=== PATIENT | male | born 1955 | race Caucasian/White ===

== ENCOUNTER 2019-03-20 19:54 | Inpatient (IN) | payer MEDICARE ==
[~2019-03-20] VITALS: Ht 175.3 cm; Wt 95.8 kg
[2019-03-20] MEDS ORDERED: IV NORMAL SALINE 1000ML BAG 1,000 ML IV ONE ×3 (20:30→20:45)
[2019-03-20] MEDS ORDERED: ONDANSETRON PF 4 MG/2 ML VIAL. IV ONE (20:30)
[2019-03-20] MEDS ORDERED: ACETAMINOPHEN 500 MG TABLET PO ONE (20:30)
--- NOTE | 2019-03-20 20:41 | PHYS DOC ---
Past Medical History Past Medical History: Diabetes-Type II, High Cholesterol, Heart Disease, Hypertension, Immunosuppression, Renal Disease, Other Additional Past Medical Histor: RENAL TRANSPLANT; "BROKEN NECK" 8 WKS AGO Past Surgical History: Other Additional Past Surgical Histo: RENAL TRANSPLANT Alcohol Use: None Drug Use: None Adult General Chief Complaint Chief Complaint: NAUSEA/VOMITING/DIARRHA HPI HPI Patient is a 63 year old male patient with history of diabetes mellitus and kidney transplant in November 2012 who presents with complaining of fever and chills. Patient states he was driving from [facility] to this area and felt sudden onset of chills and sweating at 1600 and deep had 2 episodes of vomiting and 2 episodes of nonbloody diarrhea without abdominal pain, cough and congestion, neck pain, body ache, sick contact, urinary symptom. Patient states he had history of sepsis with Escherichia coli last December with the same symptoms. Review of Systems Review of Systems Constitutional: Reports fever and chills Eyes: Denies change in visual acuity, redness, or eye pain [] HENT: Denies nasal congestion or sore throat [] Respiratory: Denies cough or shortness of breath [] Cardiovascular: No additional information not addressed in HPI [] GI: Denies abdominal pain, reports nausea, vomiting, diarrhea [] : Denies dysuria or hematuria [] Musculoskeletal: Denies back pain or joint pain [] Integument: Denies rash or skin lesions [] Neurologic: Denies headache, focal weakness or sensory changes [] Endocrine: Denies polyuria or polydipsia [] All other systems were reviewed and found to be within normal limits, except as documented in this note. Current Medications Current Medications Current Medications Medications (Trade) Dose Ordered Sig/Geetha Start Time Stop Time Status Last Admin Dose Admin Acetaminophen (Tylenol) 1,000 mg 1X ONCE 03/20/19 20:30 03/20/19 20:33 DC 03/20/19 21:10 1,000 MG Ondansetron HCl (Zofran) 4 mg 1X ONCE 03/20/19 20:30 03/20/19 20:33 DC Piperacillin Sod/ Tazobactam Sod 2.25 gm/Sodium Chloride 50 ml @ 100 mls/hr 1X ONCE 03/20/19 21:45 03/20/19 22:14 DC 03/20/19 22:02 100 MLS/HR Sodium Chloride 1,000 ml @ 1,000 mls/hr 1X ONCE 03/20/19 20:45 03/20/19 21:44 DC 03/20/19 21:14 1,000 MLS/HR Allergies Allergies Allergies Coded Allergies Type Severity Reaction Last Updated Verified No Known Drug Allergies 03/20/19 No Physical Exam Physical Exam Constitutional: Well developed, well nourished, moderate distress, non-toxic appearance, temperature of 102.6. [] HENT: Normocephalic, atraumatic, bilateral external ears normal, oropharynx dry, no oral exudates, nose normal. [] Eyes: PERRLA, EOMI, conjunctiva normal, no discharge. [] Neck: Normal range of motion, no tenderness, supple, no stridor. [] Cardiovascular: Tachycardia, no murmur [] Lungs & Thorax: Bilateral breath sounds clear to auscultation [] Abdomen: Bowel sounds normal, soft, no tenderness, no masses, no pulsatile masses. [] Skin: Warm, dry, no erythema, no rash. [] Back: No tenderness, no CVA tenderness. [] Extremities: No tenderness, no cyanosis, no clubbing, ROM intact, no edema. [] Neurologic: Alert and oriented X 3, normal motor function, normal sensory function, no focal deficits noted. [] Psychologic: Affect normal, judgement normal, mood normal. [] Current Patient Data Vital Signs Vital Signs Date Time Temp Pulse Resp B/P (MAP) Pulse Ox O2 Delivery O2 Flow Rate FiO2 03/20/19 21:00 75 28 154/75 (101) 98 Room Air 03/20/19 20:24 102.9 102.9 Lab Values Laboratory Tests Test 03/20/19 21:00 03/20/19 21:10 White Blood Count 13.0 x10^3/uL (4.0-11.0) H Red Blood Count 4.58 x10^6/uL (4.30-5.70) Hemoglobin 13.3 g/dL (13.0-17.5) Hematocrit 40.0 % (39.0-53.0) Mean Corpuscular Volume 87 fL (79-100) Mean Corpuscular Hemoglobin 29 pg (25-35) Mean Corpuscular Hemoglobin Concent 33 g/dL (31-37) Red Cell Distribution Width 14.6 % (11.5-14.5) H Platelet Count 140 x10^3/uL (140-400) Neutrophils (%) (Auto) 86 % (31-73) H Lymphocytes (%) (Auto) 7 % (24-48) L Monocytes (%) (Auto) 7 % (0-9) Eosinophils (%) (Auto) 0 % (0-3) Basophils (%) (Auto) 0 % (0-3) Neutrophils # (Auto) 11.1 x10^3/uL (1.8-7.7) H Lymphocytes # (Auto) 0.9 x10^3/uL (1.0-4.8) L Monocytes # (Auto) 0.9 x10^3/uL (0.0-1.1) Eosinophils # (Auto) 0.0 x10^3/uL (0.0-0.7) Basophils # (Auto) 0.0 x10^3/uL (0.0-0.2) Segmented Neutrophils % 83 % (35-66) H Band Neutrophils % 4 % (0-9) Lymphocytes % 6 % (24-48) L Monocytes % 6 % (0-10) Metamyelocytes % 1 % (0-0) H Toxic Vacuolation Slight Platelet Estimate Adequate (ADEQUATE) Prothrombin Time 13.5 SEC (11.7-14.0) Prothrombin Time INR 1.1 (0.8-1.1) Sodium Level 138 mmol/L (136-145) Potassium Level 5.4 mmol/L (3.5-5.1) H Chloride Level 105 mmol/L (98-107) Carbon Dioxide Level 22 mmol/L (21-32) Anion Gap 11 (6-14) Blood Urea Nitrogen 51 mg/dL (8-26) H Creatinine 2.5 mg/dL (0.7-1.3) H Estimated GFR (Cockcroft-Gault) 26.0 BUN/Creatinine Ratio 20 (6-20) Glucose Level 174 mg/dL (70-99) H Lactic Acid Level 0.8 mmol/L (0.4-2.0) Calcium Level 8.8 mg/dL (8.5-10.1) Total Bilirubin 0.6 mg/dL (0.2-1.0) Aspartate Amino Transferase (AST) 30 U/L (15-37) Alanine Aminotransferase (ALT) 44 U/L (16-63) Alkaline Phosphatase 79 U/L (46-116) Total Protein 7.7 g/dL (6.4-8.2) Albumin 4.0 g/dL (3.4-5.0) Albumin/Globulin Ratio 1.1 (1.0-1.7) Lipase 211 U/L (73-393) Influenza Type A Antigen Negative (NEGATIVE) Influenza Type B Antigen Negative (NEGATIVE) Laboratory Tests 03/20/19 21:00 Laboratory Tests 03/20/19 21:00 EKG EKG [] Radiology/Procedures Radiology/Procedures [][facility] [address] [place] [address] IMAGING REPORT Signed PATIENT: ANTONIA HANLEY ACCOUNT: [id number] : 1955 LOCATION: [address] [place] [address] AGE: 63 SEX: M EXAM STATUS: ADM IN ORD. PHYSICIAN: RUBIA VELEZ MD REASON: vomiting and diarrhea, fever PROCEDURE: PORTABLE CHEST 1V Indication:Fever. Diarrhea. TECHNIQUE:Portable AP chest X-ray COMPARISON: None FINDINGS: Patient is rotated to the right side limiting optimal evaluation. Heart is normal in size. Mild central bilateral peribronchial wall thickening is seen with interstitial opacities. No focal consolidation. No pneumothorax or pleural effusion. Visualized bony thorax within normal limits. IMPRESSION: Findings of acute bronchitis/atypical/viral infection. Electronically signed by: Vega Lacey DO (03/21/2019 12:07 AM) [facility] DICTATED and SIGNED BY: VEGA LACEY DO DATE: 03/21/19 0007 Course & Med Decision Making Course & Med Decision Making Pertinent Labs and Imaging studies reviewed. (See chart for details) Evaluation of patient in ER showed 63-year-old male patient with history of diabetes mellitus and renal transplant on Prograf and prednisone complaining of sudden onset of fever and few episode of nausea and vomiting and diarrhea. Patient had temperature of 102 at arrival to ER that gradually improved. Lactic was negative. On-call infectious disease and Dr. Gan was consulted at 2144 and recommended to start renal dose of Zosyn. Patient tolerated oral intake.Patient requiring admission for further evaluation and treatment. Discussed with Dr. Saavedra who is in agreement with admission. Discussed findings and plan with patient and family, who acknowledge understanding and agreement. Dragon Disclaimer Dragon Disclaimer This electronic medical record was generated, in whole or in part, using a voice recognition dictation system. Departure Departure Impression: Primary Impression: Fever Additional Impressions: Acute gastroenteritis Chronic renal insufficiency History of renal transplantation Chills Disposition: ADMITTED INPATIENT (at 2130) Admitting Physician: TAWANA (Dr. Saavedra accepted admission at 2129) Condition: GUARDED Critical Care Time Critical care time was 60 minutes exclusive of procedures. Problem Qualifiers Primary Impression: Fever Fever type: unspecified Qualified Codes: R50.9 - Fever, unspecified Additional Impressions: Chronic renal insufficiency Chronic kidney disease stage: unspecified stage Qualified Codes: N18.9 - Chronic kidney disease, unspecified RUBIA VELEZ MD Mar 20, 2019 20:41
[2019-03-20 21:12] LABS: BASO % 0 % (0-3); EOS % 0 % (0-3); HEMOGLOBIN 13.3 g/dL (13.0-17.5); LYMPH # 0.9 x10^3/uL (1.0-4.8); LYMPH % 7 % (24-48); MEAN CORPUSCULAR HEMOGLOBIN 29 pg (25-35); MEAN CORPUSCULAR HGB CONC 33 g/dL (31-37); MEAN CORPUSCULAR VOLUME 87 fL (79-100); MONO # 0.9 x10^3/uL (0.0-1.1); MONO % 7 % (0-9); NEUT # 11.1 x10^3/uL (1.8-7.7); NEUT % 86 % (31-73); PLATELET COUNT 140 x10^3/uL (140-400); RED BLOOD COUNT 4.58 x10^6/uL (4.30-5.70); RED CELL DISTRIBUTION WIDTH 14.6 % (11.5-14.5)
[2019-03-20 21:21] LABS: PROTHROMBIN TIME PATIENT 13.5 SEC (11.7-14.0)
[2019-03-20 21:25] LABS: CALCIUM 8.8 mg/dL (8.5-10.1); CREATININE 2.5 mg/dL (0.7-1.3); POTASSIUM 5.4 mmol/L (3.5-5.1)
[2019-03-20 21:29] LABS: ALBUMIN/GLOBULIN RATIO 1.1 (1.0-1.7); TOTAL BILIRUBIN 0.6 mg/dL (0.2-1.0); TOTAL PROTEIN 7.7 g/dL (6.4-8.2)
[2019-03-20 21:31] LABS: % BANDS 4 % (0-9); % LYMPHS 6 % (24-48); % METAS 1 % (0-0); % MONOS 6 % (0-10); % SEGS 83 % (35-66); PLT ESTIMATE ADEQUATE (ADEQUATE)
[2019-03-20 21:32] LABS: TOXIC VACUOLATION SLIGHT
[2019-03-20 21:35] LABS: INFLUENZA A PATIENT NEGATIVE (NEGATIVE); INFLUENZA B PATIENT NEGATIVE (NEGATIVE)
[2019-03-20] MEDS ORDERED: PIPERACILLIN/TAZOBACTAM 2.25 GM in IV NORMAL SALINE 50ML 50 ML IV ONE (21:45)
[2019-03-20] MEDS ORDERED: ACETAMINOPHEN 325 MG TABLET. PO PRN (22:15)
[2019-03-20] MEDS ORDERED: ALBUTEROL SULFATE 2.5 MG/3 ML NEBU. CONT NEB ONE (22:15)
[2019-03-20] MEDS ORDERED: ONDANSETRON PF 4 MG/2 ML VIAL. IV PRN (22:15)
[2019-03-20] MEDS ORDERED: TAMS0.4C97 PO (22:49)
[2019-03-20] MEDS ORDERED: INSU100V6 SQ (22:49)
[2019-03-20] MEDS ORDERED: AMLO10TA4 PO (22:49)
[2019-03-20] MEDS ORDERED: INSU100I13 SQ (22:49)
[2019-03-20] MEDS ORDERED: TACR1CAP4 PO (22:49)
[2019-03-20] MEDS ORDERED: MYCO360T PO (22:49)
[2019-03-20] MEDS ORDERED: CHOL2000 PO (22:49)
[2019-03-20] MEDS ORDERED: ASPI-630 PO (22:49)
[2019-03-20] MEDS ORDERED: PRED2.5T PO (22:49)
[2019-03-20] MEDS ORDERED: MULT1TAB52 PO (22:49)
[2019-03-20] MEDS ORDERED: CHLO25TA10 PO (22:49)
[2019-03-20] MEDS ORDERED: ATOR10TA60 PO (22:49)
[2019-03-20] MEDS ORDERED: LISI-130 PO (22:49)
[2019-03-20 23:09] VITALS: BP 131/45
[2019-03-20] MEDS: IV NORMAL SALINE 1000ML BAG 1,000 ML IV SCH (23:45)
[2019-03-20] MEDS: PIPERACILLIN/TAZOBACTAM 2.25 GM in IV NORMAL SALINE 50ML 50 ML IV SCH (23:52)
--- NOTE | 2019-03-20 23:55 | NUR ---
Pt arrived to room 208 per cart ,pt oriented to surroundings vs obtained and stable pt denies pain at this time. Assessment completed call light placed in reach playground monitor applied will monitor pt.
[2019-03-21] MEDS ORDERED: TACROLIMUS 0.5 MG CAPSULE PO ONE
[2019-03-21] MEDS ORDERED: MYCOPHENOLATE ACID 180 MG TABLET.DR. PO ONE
[2019-03-21] MEDS ORDERED: TACROLIMUS 1 MG CAPSULE PO ONE
[2019-03-21] MEDS ORDERED: LISINOPRIL 20 MG TABLET PO ONE
--- NOTE | 2019-03-21 00:09 | RAD ---
Indication:Fever. Diarrhea. TECHNIQUE:Portable AP chest X-ray COMPARISON: None FINDINGS: Patient is rotated to the right side limiting optimal evaluation. Heart is normal in size. Mild central bilateral peribronchial wall thickening is seen with interstitial opacities. No focal consolidation. No pneumothorax or pleural effusion. Visualized bony thorax within normal limits. IMPRESSION: Findings of acute bronchitis/atypical/viral infection. Electronically signed by: Vega Lacey DO (03/21/2019 12:07 AM) [facility]
[2019-03-21] MEDS: PIPERACILLIN/TAZOBACTAM 2.25 GM in IV NORMAL SALINE 50ML 50 ML IV SCH ×4 (06:09→23:18)
[2019-03-21] MEDS: IV NORMAL SALINE 1000ML BAG 1,000 ML IV SCH ×2 (06:15→14:51)
[2019-03-21 07:00] VITALS: BP 131/54
[2019-03-21] MEDS ORDERED: PIP/TAZO PER PHARMACY MC PRN (07:00)
[2019-03-21 07:33] LABS: BILIRUBIN,URINE NEGATIVE (NEG); CLARITY,URINE CLEAR; COLOR,URINE YELLOW; NITRITE,URINE POSITIVE (NEG); PH,URINE 5.5; PROTEIN,URINE NEGATIVE (NEG-TRACE); UROBILINOGEN,URINE 0.2 mg/dL (0.2 mg/dL)
[2019-03-21 07:46] LABS: BACTERIA,URINE MANY /HPF (0-FEW); SQUAMOUS EPITHELIAL CELL,UR OCC /LPF
[2019-03-21 07:47] LABS: RBC,URINE OCC /HPF (0-2); WBC,URINE >40 /HPF (0-4)
[2019-03-21] MEDS: MYCOPHENOLATE ACID 180 MG TABLET.DR. PO SCH ×2 (08:53→23:08)
[2019-03-21] MEDS: TACROLIMUS 0.5 MG CAPSULE PO SCH ×2 (08:54→23:08)
[2019-03-21] MEDS: amLODIPine BESYLATE 10 MG TABLET PO SCH (08:54)
[2019-03-21] MEDS: CHOLECALCIFEROL (VITAMIN D3) 1,000 UNIT TABLET PO SCH (08:54)
[2019-03-21] MEDS: MULTIVITAMIN with MINERAL TABLET. PO SCH (08:55)
[2019-03-21] MEDS: LISINOPRIL 20 MG TABLET PO SCH ×2 (08:55→23:06)
[2019-03-21] MEDS: TAMSULOSIN 0.4 MG CAP.ER.24H. PO SCH (08:55)
[2019-03-21] MEDS: CHLORTHALIDONE 25 MG TABLET. PO SCH (08:55)
[2019-03-21] MEDS: predniSONE 5 MG TABLET PO SCH (08:55)
[2019-03-21] MEDS: ASPIRIN CHEWABLE 81 MG TABLET. PO SCH (08:55)
[2019-03-21] MEDS: INSULIN LISPRO 300 UNITS/3 ML VIAL. SQ SCH ×4 (08:56→21:00)
[2019-03-21] MEDS ORDERED: NON FORMULARY ITEM (Insulin Glargine,Hum.rec.anlog (Lantus Solostar) 60 UNIT) SQ SCH (09:00)
[2019-03-21] MEDS ORDERED: INSULIN GLARGINE SYRINGE. SQ SCH (09:00)
--- NOTE | 2019-03-21 09:29 | PDOC ---
Infectious Disease Note Vital Signs: Vital Signs Vital Signs Date Time Temp Pulse Resp B/P (MAP) Pulse Ox O2 Delivery O2 Flow Rate FiO2 03/21/19 08:55 73 131/54 03/21/19 07:00 99.2 18 99 Room Air 99.2 Medications: Inpatient Meds: Current Medications Medications (Trade) Dose Ordered Sig/Geetha Start Time Stop Time Status Last Admin Dose Admin Acetaminophen (Tylenol) 650 mg PRN Q4HRS PRN 03/20/19 22:15 03/21/19 08:00 DC Albuterol Sulfate (Ventolin Neb Soln) 10 mg 1X ONCE 03/20/19 22:15 03/20/19 22:16 DC 03/20/19 23:40 10 MG Amlodipine Besylate (Norvasc) 20 mg DAILY 03/21/19 09:00 03/21/19 08:54 20 MG Aspirin (Children'S Aspirin) 81 mg DAILYWBKFT 03/21/19 08:00 03/21/19 08:55 81 MG Atorvastatin Calcium (Lipitor) 10 mg HS 03/21/19 21:00 Chlorthalidone (Thalitone) 25 mg DAILY 03/21/19 09:00 03/21/19 08:55 25 MG Insulin Glargine (Lantus Syringe) 60 unit DAILY 03/21/19 09:00 03/21/19 09:10 30 UNIT Insulin Human Lispro (HumaLOG) 6 units QIDACHS 03/21/19 07:30 03/21/19 08:56 6 UNITS Lisinopril (Prinivil) 40 mg 1X ONCE 03/21/19 00:00 03/21/19 00:01 DC 03/21/19 00:00 40 MG Multivitamins (Thera M Plus) 1 tab DAILY 03/21/19 09:00 03/21/19 08:55 1 TAB Mycophenolate Sodium (Myfortic) 720 mg 1X ONCE 03/21/19 00:00 03/21/19 00:01 DC 03/21/19 00:01 720 MG Non-Formulary Medication (Insulin Glargine,Hum.rec.anlog (Lantus Solostar)) 60 unit DAILY 03/21/19 09:00 UNV Ondansetron HCl (Zofran) 4 mg PRN Q4HRS PRN 03/20/19 22:15 Piperacillin Sod/ Tazobactam Sod (Zosyn Per Pharmacy) 1 each PRN DAILY PRN 03/21/19 07:00 Piperacillin Sod/ Tazobactam Sod 2.25 gm/Sodium Chloride 50 ml @ 100 mls/hr Q6HRS 03/21/19 12:00 Prednisone (Prednisone) 5 mg DAILY 03/21/19 09:00 03/21/19 08:55 5 MG Sodium Chloride 1,000 ml @ 125 mls/hr Q8H 03/20/19 22:15 03/21/19 22:14 03/20/19 23:45 125 MLS/HR Tacrolimus (Prograf) 2 mg 1X ONCE 03/21/19 00:00 03/21/19 00:01 DC 03/21/19 00:02 2 MG Tamsulosin HCl (Flomax) 0.4 mg DAILY 03/21/19 09:00 03/21/19 08:55 0.4 MG Vitamin D (Vitamin D3) 2,000 unit DAILY 03/21/19 09:00 03/21/19 08:54 2,000 UNIT Labs: Lab Laboratory Tests Test 03/20/19 21:00 03/20/19 21:10 03/20/19 22:47 03/21/19 07:10 White Blood Count 13.0 x10^3/uL (4.0-11.0) Red Blood Count 4.58 x10^6/uL (4.30-5.70) Hemoglobin 13.3 g/dL (13.0-17.5) Hematocrit 40.0 % (39.0-53.0) Mean Corpuscular Volume 87 fL (79-100) Mean Corpuscular Hemoglobin 29 pg (25-35) Mean Corpuscular Hemoglobin Concent 33 g/dL (31-37) Red Cell Distribution Width 14.6 % (11.5-14.5) Platelet Count 140 x10^3/uL (140-400) Neutrophils (%) (Auto) 86 % (31-73) Lymphocytes (%) (Auto) 7 % (24-48) Monocytes (%) (Auto) 7 % (0-9) Eosinophils (%) (Auto) 0 % (0-3) Basophils (%) (Auto) 0 % (0-3) Neutrophils # (Auto) 11.1 x10^3/uL (1.8-7.7) Lymphocytes # (Auto) 0.9 x10^3/uL (1.0-4.8) Monocytes # (Auto) 0.9 x10^3/uL (0.0-1.1) Eosinophils # (Auto) 0.0 x10^3/uL (0.0-0.7) Basophils # (Auto) 0.0 x10^3/uL (0.0-0.2) Segmented Neutrophils % 83 % (35-66) Band Neutrophils % 4 % (0-9) Lymphocytes % 6 % (24-48) Monocytes % 6 % (0-10) Metamyelocytes % 1 % (0-0) Toxic Vacuolation Slight Platelet Estimate Adequate (ADEQUATE) Prothrombin Time 13.5 SEC (11.7-14.0) Prothromb Time International Ratio 1.1 (0.8-1.1) Sodium Level 138 mmol/L (136-145) Potassium Level 5.4 mmol/L (3.5-5.1) Chloride Level 105 mmol/L (98-107) Carbon Dioxide Level 22 mmol/L (21-32) Anion Gap 11 (6-14) Blood Urea Nitrogen 51 mg/dL (8-26) Creatinine 2.5 mg/dL (0.7-1.3) Estimated GFR (Cockcroft-Gault) 26.0 BUN/Creatinine Ratio 20 (6-20) Glucose Level 174 mg/dL (70-99) Lactic Acid Level 0.8 mmol/L (0.4-2.0) Calcium Level 8.8 mg/dL (8.5-10.1) Total Bilirubin 0.6 mg/dL (0.2-1.0) Aspartate Amino Transf (AST/SGOT) 30 U/L (15-37) Alanine Aminotransferase (ALT/SGPT) 44 U/L (16-63) Alkaline Phosphatase 79 U/L (46-116) Total Protein 7.7 g/dL (6.4-8.2) Albumin 4.0 g/dL (3.4-5.0) Albumin/Globulin Ratio 1.1 (1.0-1.7) Lipase 211 U/L (73-393) Influenza Type A Antigen Negative (NEGATIVE) Influenza Type B Antigen Negative (NEGATIVE) Glucose (Fingerstick) 136 mg/dL (70-99) Urine Collection Type U cath Urine Color Yellow Urine Clarity Clear Urine pH 5.5 Urine Specific Mcgill 1.015 Urine Protein Negative mg/dL (NEG-TRACE) Urine Glucose (UA) Negative mg/dL (NEG) Urine Ketones (Stick) Negative mg/dL (NEG) Urine Blood Negative (NEG) Urine Nitrite Positive (NEG) Urine Bilirubin Negative (NEG) Urine Urobilinogen Dipstick 0.2 mg/dL (0.2 mg/dL) Urine Leukocyte Esterase Moderate (NEG) Urine RBC Occ /HPF (0-2) Urine WBC >40 /HPF (0-4) Urine Squamous Epithelial Cells Occ /LPF Urine Bacteria Many /HPF (0-FEW) Urine Mucus Slight /LPF Test 03/21/19 08:17 Glucose (Fingerstick) 208 mg/dL (70-99) Objective: Assessment: Pt seen and examined ID consult dictated [id number] Plan: Plan of Care cont kem thank you LYNDSAY HOWE MD Mar 21, 2019 09:29
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
[2019-03-21 11:00] VITALS: BP 114/56
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
--- NOTE | 2019-03-21 12:19 | PDOC1 ---
History and Physical Date of Admission Date of Admission DATE: 03/21/19 TIME: 12:15 History of Present Illness History of Present Illness GeraldrAris Fitzgerald, is a 63 year old male patient admit with weakness sweats, fever, myalgia, started suddenly last evening. Patient states he [facility] [place] this area and felt sudden onset of chills and sweating at 1600 and deep had 2 episodes of vomiting and 2 episodes of nonbloody diarrhea without abdominal pain, cough and congestion, neck pain, body ache, sick contact, urinary symptom he was chilled, shivering, but sweating profusely, he thinks his temp was > 102 because he felt worse in the car before he got here. he is in town for the [place], with his , she went to the race this AM Past Medical History Past Medical History with history of diabetes mellitus and kidney transplant in November 2012 prior e. coli bacteremia this year Family History Family History: No Significant Social History Smoke: No ALCOHOL: rare Current Problem List Problem List Problems Medical Problems: (1) Acute gastroenteritis Status: Acute (2) Chills Status: Acute (3) Chronic renal insufficiency Status: Acute (4) Fever Status: Acute Current Medications Current Medications Current Medications Acetaminophen (Tylenol) 1,000 mg 1X ONCE PO Last administered on 03/20/19at 21:10; Start 03/20/19 at 20:30; Stop 03/20/19 at 20:33; Status DC Ondansetron HCl (Zofran) 4 mg 1X ONCE IV ; Start 03/20/19 at 20:30; Stop 03/20/19 at 20:33; Status DC Sodium Chloride 1,000 ml @ 1,000 mls/hr 1X ONCE IV Last administered on 03/20/19at 21:09; Start 03/20/19 at 20:30; Stop 03/20/19 at 21:29; Status DC Sodium Chloride 1,000 ml @ 1,000 mls/hr 1X ONCE IV Last administered on 03/20/19at 21:15; Start 03/20/19 at 20:30; Stop 03/20/19 at 21:29; Status DC Sodium Chloride 1,000 ml @ 1,000 mls/hr 1X ONCE IV Last administered on 03/20/19at 21:14; Start 03/20/19 at 20:45; Stop 03/20/19 at 21:44; Status DC Piperacillin Sod/ Tazobactam Sod 2.25 gm/Sodium Chloride 50 ml @ 100 mls/hr 1X ONCE IV Last administered on 03/20/19at 22:02; Start 03/20/19 at 21:45; Stop 03/20/19 at 22:14; Status DC Albuterol Sulfate (Ventolin Neb Soln) 10 mg 1X ONCE CONT NEB Last administered on 03/20/19at 23:40; Start 03/20/19 at 22:15; Stop 03/20/19 at 22:16; Status DC Ondansetron HCl (Zofran) 4 mg PRN Q4HRS PRN IV NAUSEA/VOMITING; Start 03/20/19 at 22:15 Sodium Chloride 1,000 ml @ 125 mls/hr Q8H IV Last administered on 03/20/19at 23:45; Start 03/20/19 at 22:15; Stop 03/21/19 at 22:14 Acetaminophen (Tylenol) 650 mg PRN Q4HRS PRN PO FEVER; Start 03/20/19 at 22:15; Stop 03/21/19 at 08:00; Status DC Piperacillin Sod/ Tazobactam Sod 2.25 gm/Sodium Chloride 50 ml @ 100 mls/hr Q6HRS IV Last administered on 03/21/19at 06:09; Start 03/21/19 at 00:00; Stop 03/21/19 at 06:29; Status DC Amlodipine Besylate (Norvasc) 20 mg DAILY PO Last administered on 03/21/19at 08:54; Start 03/21/19 at 09:00 Aspirin (Children'S Aspirin) 81 mg DAILYWBKFT PO Last administered on 03/21/19at 08:55; Start 03/21/19 at 08:00 Atorvastatin Calcium (Lipitor) 10 mg HS PO ; Start 03/21/19 at 21:00 Chlorthalidone (Thalitone) 25 mg DAILY PO Last administered on 03/21/19at 08:55; Start 03/21/19 at 09:00 Insulin Human Lispro (HumaLOG) 6 units QIDACHS SQ Last administered on 03/21/19at 08:56; Start 03/21/19 at 07:30 Lisinopril (Prinivil) 40 mg BID PO Last administered on 03/21/19 08:55; Start 03/21/19 at 09:00 Tacrolimus (Prograf) 2 mg BID PO Last administered on 03/21/19 08:54; Start 03/21/19 at 09:00 Tamsulosin HCl (Flomax) 0.4 mg DAILY PO Last administered on 03/21/19 08:55; Start 03/21/19 at 09:00 Vitamin D (Vitamin D3) 2,000 unit DAILY PO Last administered on 03/21/19 08:54; Start 03/21/19 at 09:00 Non-Formulary Medication (Insulin Glargine,Hum.rec.anlog (Lantus Solostar)) 60 unit DAILY SQ ; Start 03/21/19 at 09:00; Status UNV Multivitamins (Thera M Plus) 1 tab DAILY PO Last administered on 03/21/19 08:55; Start 03/21/19 at 09:00 Mycophenolate Sodium (Myfortic) 720 mg BID PO Last administered on 03/21/19at 08:53; Start 03/21/19 at 09:00 Prednisone (Prednisone) 5 mg DAILY PO Last administered on 03/21/19 08:55; Start 03/21/19 at 09:00 Insulin Glargine (Lantus Syringe) 60 unit DAILY SQ Last administered on 03/21/19at 09:10; Start 03/21/19 at 09:00 Mycophenolate Sodium (Myfortic) 720 mg 1X ONCE PO Last administered on 03/21/19at 00:01; Start 03/21/19 at 00:00; Stop 03/21/19 at 00:01; Status DC Tacrolimus (Prograf) 2 mg 1X ONCE PO ; Start 03/21/19 at 00:00; Stop 03/20/19 at 23:54; Status DC Lisinopril (Prinivil) 40 mg 1X ONCE PO Last administered on 03/21/19at 00:00; Start 03/21/19 at 00:00; Stop 03/21/19 at 00:01; Status DC Tacrolimus (Prograf) 2 mg 1X ONCE PO Last administered on 03/21/19at 00:02; Start 03/21/19 at 00:00; Stop 03/21/19 at 00:01; Status DC Piperacillin Sod/ Tazobactam Sod (Zosyn Per Pharmacy) 1 each PRN DAILY PRN MC SEE COMMENTS; Start 03/21/19 at 07:00 Piperacillin Sod/ Tazobactam Sod 2.25 gm/Sodium Chloride 50 ml @ 100 mls/hr Q6HRS IV ; Start 03/21/19 at 12:00 Active Scripts Active Reported Lantus Solostar (Insulin Glargine,Hum.rec.anlog) 100 Unit/1 Ml Insuln.pen 60 Unit SQ DAILY Humalog (Insulin Lispro) 100 Unit/1 Ml Vial 6 Unit SQ QIDACHS Vitamin D (Cholecalciferol (Vitamin D3)) 2,000 Unit Capsule 1 Cap PO DAILY Aspirin 81 Mg Tab.chew 1 Tab PO DAILY Multivitamins (Multivitamin) 1 Each Tablet 1 Tab PO DAILY Chlorthalidone (Chlorthalidone) 25 Mg Tablet 25 Mg PO DAILY Atorvastatin Calcium 10 Mg Tablet 1 Tab PO DAILY Norvasc (Amlodipine Besylate) 10 Mg Tablet 20 Mg PO DAILY Flomax (Tamsulosin Hcl) 0.4 Mg Cap.er.24h 0.4 Mg PO DAILY Lisinopril 40 Mg Tablet 40 Mg PO BID Prednisone 2.5 Mg Tablet 5 Mg PO DAILY Prograf (Tacrolimus) 1 Mg Capsule 2 Mg PO BID Myfortic (Mycophenolate Sodium) 360 Mg Tablet.dr 720 Mg PO BID Allergies Allergies: Coded Allergies: No Known Drug Allergies (Unverified , 03/20/19) ROS General: YES: Chills, Fatigue, Malaise; No: Night Sweats, Appetite, Other PSYCHOLOGICAL ROS: No: Anxiety, Behavioral Disorder, Concentration difficultie, Decreased libido, Depression, Disorientation, Hallucinations, Hostility, Irritab lity, Memory difficulties, Mood Swings, Obsessive thoughts, Other Eyes: No Blurry vision, No Decreased vision, No Double vision, No Dry eyes, No Excessive tearing, No Eye Pain, No Itchy Eyes, No Loss of vision, No Photophobia, No Scotomata, No Uses contacts, No Uses glasses, No Other HEENT: No: Heacaches, Visual Changes, Hearing change, Nasal congestion, Nasal discharge, Oral lesions, Sinus pain, Sore Throat, Epistaxis, Sneezing, Snoring, Tinnitus, Vertigo, Vocal changes, Other Respiratory: YES: SOB with excertion; No: Cough, Hemoptysis, Orthopnea, Pleuritic Pain, Shortness of breath, Sputum Changes, Stridor, Tachypnea, Wheezing, Other Cardiovascular: No Chest Pain, No Palpitations, No Orthopnea, No Paroxysmal Noc. Dyspnea, No Edema, No Lt Headedness, No Other Gastrointestinal: Yes Nausea; No Vomiting, No Abdominal Pain, No Diarrhea, No Constipation, No Melena, No Hematochezia, No Other Genitourinary: No Dysuria, No Frequency, No Incontinence, No Hematuria, No Retention, No Discharge, No Urgency, No Pain, No Flank Pain, No Other, No , No , No , No , No , No , No Musculoskeletal: Yes Muscular Weakness; No Gait Disturbance, No Joint Pain, No Joint Stiffness, No Joint Swelling, No Muscle Pain, No Pain In:, No Swelling In:, No Other Neurological: No Behavorial Changes, No Bowel/Bladder ControlChng, No Confusion, No Dizziness, No Gait Disturbance, No Headaches, No Impaired Coord/balance, No Memory Loss, No Numbness/Tingling, No Seizures, No Speech Problems, No Tremors, No Visual Changes, No Weakness, No Other Skin: Yes Dry Skin; No Eczema, No Hair Changes, No Lumps, No Mole Changes, No Mottling, No Nail Changes, No Pruritus, No Rash, No Skin Lesion Changes, No Other, No Acne Physical Exam General: Alert, Oriented X3, Cooperative, mild distress HEENT: Atraumatic, PERRLA, EOMI, Mucous membr. moist/pink Lungs: Normal air movement Heart: no gallops, no murmurs Abdomen: Normal bowel sounds, Soft Extremities: No clubbing, No edema Skin: No rashes, No significant lesion Neuro: Normal gait, Normal tone Psych/Mental Status: Mental status NL, Mood NL Vitals Vitals Vital Signs Date Time Temp Pulse Resp B/P (MAP) Pulse Ox O2 Delivery O2 Flow Rate FiO2 03/21/19 08:55 73 131/54 03/21/19 07:00 99.2 18 99 Room Air 99.2 Labs Labs Laboratory Tests Test 03/20/19 21:00 03/20/19 21:10 03/20/19 22:47 03/21/19 07:10 White Blood Count 13.0 x10^3/uL (4.0-11.0) Red Blood Count 4.58 x10^6/uL (4.30-5.70) Hemoglobin 13.3 g/dL (13.0-17.5) Hematocrit 40.0 % (39.0-53.0) Mean Corpuscular Volume 87 fL (79-100) Mean Corpuscular Hemoglobin 29 pg (25-35) Mean Corpuscular Hemoglobin Concent 33 g/dL (31-37) Red Cell Distribution Width 14.6 % (11.5-14.5) Platelet Count 140 x10^3/uL (140-400) Neutrophils (%) (Auto) 86 % (31-73) Lymphocytes (%) (Auto) 7 % (24-48) Monocytes (%) (Auto) 7 % (0-9) Eosinophils (%) (Auto) 0 % (0-3) Basophils (%) (Auto) 0 % (0-3) Neutrophils # (Auto) 11.1 x10^3/uL (1.8-7.7) Lymphocytes # (Auto) 0.9 x10^3/uL (1.0-4.8) Monocytes # (Auto) 0.9 x10^3/uL (0.0-1.1) Eosinophils # (Auto) 0.0 x10^3/uL (0.0-0.7) Basophils # (Auto) 0.0 x10^3/uL (0.0-0.2) Segmented Neutrophils % 83 % (35-66) Band Neutrophils % 4 % (0-9) Lymphocytes % 6 % (24-48) Monocytes % 6 % (0-10) Metamyelocytes % 1 % (0-0) Toxic Vacuolation Slight Platelet Estimate Adequate (ADEQUATE) Prothrombin Time 13.5 SEC (11.7-14.0) Prothromb Time International Ratio 1.1 (0.8-1.1) Sodium Level 138 mmol/L (136-145) Potassium Level 5.4 mmol/L (3.5-5.1) Chloride Level 105 mmol/L (98-107) Carbon Dioxide Level 22 mmol/L (21-32) Anion Gap 11 (6-14) Blood Urea Nitrogen 51 mg/dL (8-26) Creatinine 2.5 mg/dL (0.7-1.3) Estimated GFR (Cockcroft-Gault) 26.0 BUN/Creatinine Ratio 20 (6-20) Glucose Level 174 mg/dL (70-99) Lactic Acid Level 0.8 mmol/L (0.4-2.0) Calcium Level 8.8 mg/dL (8.5-10.1) Total Bilirubin 0.6 mg/dL (0.2-1.0) Aspartate Amino Transf (AST/SGOT) 30 U/L (15-37) Alanine Aminotransferase (ALT/SGPT) 44 U/L (16-63) Alkaline Phosphatase 79 U/L (46-116) Total Protein 7.7 g/dL (6.4-8.2) Albumin 4.0 g/dL (3.4-5.0) Albumin/Globulin Ratio 1.1 (1.0-1.7) Lipase 211 U/L (73-393) Influenza Type A Antigen Negative (NEGATIVE) Influenza Type B Antigen Negative (NEGATIVE) Glucose (Fingerstick) 136 mg/dL (70-99) Urine Collection Type U cath Urine Color Yellow Urine Clarity Clear Urine pH 5.5 Urine Specific [place] 1.015 Urine Protein Negative mg/dL (NEG-TRACE) Urine Glucose (UA) Negative mg/dL (NEG) Urine Ketones (Stick) Negative mg/dL (NEG) Urine Blood Negative (NEG) Urine Nitrite Positive (NEG) Urine Bilirubin Negative (NEG) Urine Urobilinogen Dipstick 0.2 mg/dL (0.2 mg/dL) Urine Leukocyte Esterase Moderate (NEG) Urine RBC Occ /HPF (0-2) Urine WBC >40 /HPF (0-4) Urine Squamous Epithelial Cells Occ /LPF Urine Bacteria Many /HPF (0-FEW) Urine Mucus Slight /LPF Test 03/21/19 08:17 Glucose (Fingerstick) 208 mg/dL (70-99) Laboratory Tests Test 03/20/19 21:00 03/20/19 21:10 03/20/19 22:47 03/21/19 07:10 White Blood Count 13.0 x10^3/uL (4.0-11.0) Red Blood Count 4.58 x10^6/uL (4.30-5.70) Hemoglobin 13.3 g/dL (13.0-17.5) Hematocrit 40.0 % (39.0-53.0) Mean Corpuscular Volume 87 fL (79-100) Mean Corpuscular Hemoglobin 29 pg (25-35) Mean Corpuscular Hemoglobin Concent 33 g/dL (31-37) Red Cell Distribution Width 14.6 % (11.5-14.5) Platelet Count 140 x10^3/uL (140-400) Neutrophils (%) (Auto) 86 % (31-73) Lymphocytes (%) (Auto) 7 % (24-48) Monocytes (%) (Auto) 7 % (0-9) Eosinophils (%) (Auto) 0 % (0-3) Basophils (%) (Auto) 0 % (0-3) Neutrophils # (Auto) 11.1 x10^3/uL (1.8-7.7) Lymphocytes # (Auto) 0.9 x10^3/uL (1.0-4.8) Monocytes # (Auto) 0.9 x10^3/uL (0.0-1.1) Eosinophils # (Auto) 0.0 x10^3/uL (0.0-0.7) Basophils # (Auto) 0.0 x10^3/uL (0.0-0.2) Segmented Neutrophils % 83 % (35-66) Band Neutrophils % 4 % (0-9) Lymphocytes % 6 % (24-48) Monocytes % 6 % (0-10) Metamyelocytes % 1 % (0-0) Toxic Vacuolation Slight Platelet Estimate Adequate (ADEQUATE) Prothrombin Time 13.5 SEC (11.7-14.0) Prothromb Time International Ratio 1.1 (0.8-1.1) Sodium Level 138 mmol/L (136-145) Potassium Level 5.4 mmol/L (3.5-5.1) Chloride Level 105 mmol/L (98-107) Carbon Dioxide Level 22 mmol/L (21-32) Anion Gap 11 (6-14) Blood Urea Nitrogen 51 mg/dL (8-26) Creatinine 2.5 mg/dL (0.7-1.3) Estimated GFR (Cockcroft-Gault) 26.0 BUN/Creatinine Ratio 20 (6-20) Glucose Level 174 mg/dL (70-99) Lactic Acid Level 0.8 mmol/L (0.4-2.0) Calcium Level 8.8 mg/dL (8.5-10.1) Total Bilirubin 0.6 mg/dL (0.2-1.0) Aspartate Amino Transf (AST/SGOT) 30 U/L (15-37) Alanine Aminotransferase (ALT/SGPT) 44 U/L (16-63) Alkaline Phosphatase 79 U/L (46-116) Total Protein 7.7 g/dL (6.4-8.2) Albumin 4.0 g/dL (3.4-5.0) Albumin/Globulin Ratio 1.1 (1.0-1.7) Lipase 211 U/L (73-393) Influenza Type A Antigen Negative (NEGATIVE) Influenza Type B Antigen Negative (NEGATIVE) Glucose (Fingerstick) 136 mg/dL (70-99) Urine Collection Type U cath Urine Color Yellow Urine Clarity Clear Urine pH 5.5 Urine Specific [place] 1.015 Urine Protein Negative mg/dL (NEG-TRACE) Urine Glucose (UA) Negative mg/dL (NEG) Urine Ketones (Stick) Negative mg/dL (NEG) Urine Blood Negative (NEG) Urine Nitrite Positive (NEG) Urine Bilirubin Negative (NEG) Urine Urobilinogen Dipstick 0.2 mg/dL (0.2 mg/dL) Urine Leukocyte Esterase Moderate (NEG) Urine RBC Occ /HPF (0-2) Urine WBC >40 /HPF (0-4) Urine Squamous Epithelial Cells Occ /LPF Urine Bacteria Many /HPF (0-FEW) Urine Mucus Slight /LPF Test 03/21/19 08:17 Glucose (Fingerstick) 208 mg/dL (70-99) VTE Prophylaxis Ordered VTE Prophylaxis Devices: Yes VTE Pharmacological Prophylaxi: No Assessment/Plan Assessment/Plan sepsis UTI immunosuppressed obese, BMI 31 s/p renal transplant hyperkalemia acute renal failure FLORESITA LUO MD Mar 21, 2019 12:19
[2019-03-21 15:00] VITALS: BP 132/55
[2019-03-21 19:34] VITALS: BP 147/68
[2019-03-21 22:52] VITALS: BP 129/49
[2019-03-21] MEDS: ATORVASTATIN CALCIUM 10 MG TABLET. PO SCH (23:08)
[2019-03-21] MEDS: INSULIN GLARGINE SYRINGE. SQ SCH (23:22)
[2019-03-22 04:18] VITALS: BP 148/65
[2019-03-22] MEDS: PIPERACILLIN/TAZOBACTAM 2.25 GM in IV NORMAL SALINE 50ML 50 ML IV SCH ×4 (06:00→23:46)
[2019-03-22 07:42] VITALS: BP 158/74
[2019-03-22] MEDS: MYCOPHENOLATE ACID 180 MG TABLET.DR. PO SCH ×2 (09:21→21:02)
[2019-03-22] MEDS: CHLORTHALIDONE 25 MG TABLET. PO SCH (09:21)
[2019-03-22] MEDS: TAMSULOSIN 0.4 MG CAP.ER.24H. PO SCH (09:21)
[2019-03-22] MEDS: TACROLIMUS 0.5 MG CAPSULE PO SCH ×2 (09:21→21:03)
[2019-03-22] MEDS: ASPIRIN CHEWABLE 81 MG TABLET. PO SCH (09:21)
[2019-03-22] MEDS: CHOLECALCIFEROL (VITAMIN D3) 1,000 UNIT TABLET PO SCH (09:24)
[2019-03-22] MEDS: MULTIVITAMIN with MINERAL TABLET. PO SCH (09:24)
[2019-03-22] MEDS: LISINOPRIL 20 MG TABLET PO SCH ×2 (09:24→21:12)
[2019-03-22] MEDS: amLODIPine BESYLATE 10 MG TABLET PO SCH (09:25)
[2019-03-22] MEDS: predniSONE 5 MG TABLET PO SCH (09:25)
[2019-03-22] MEDS: INSULIN LISPRO 300 UNITS/3 ML VIAL. SQ SCH ×4 (09:31→21:03)
[2019-03-22] MEDS: INSULIN GLARGINE SYRINGE. SQ SCH ×2 (09:32→21:04)
--- NOTE | 2019-03-22 09:47 | PDOC ---
Infectious Disease Note Subjective: Subjective pt without complaints wants to go home today ROS: ROS Negative otherwise. Vital Signs: Vital Signs Vital Signs Date Time Temp Pulse Resp B/P (MAP) Pulse Ox O2 Delivery O2 Flow Rate FiO2 03/22/19 09:25 65 158/74 03/22/19 07:42 98.4 16 96 Room Air 98.4 Physical Exam: PHYSICAL EXAM GENERAL: Alert and oriented x 3 male in no acute distress, lying comfortably in bed, pleasant, cooperative. HEENT: Normocephalic, atraumatic, anicteric. No thrush. Oral mucosa moist. NECK: Supple, no JVD, no thyromegaly. LUNGS: Clear bilaterally. No wheezing. HEART: S1, S2. No gallops or murmurs. ABDOMEN: Soft, nontender, nondistended, no rebound, no guarding. Previous renal transplant site looks okay. There is a small area of swelling and induration over the left lower quadrant just below the umbilicus. No overlying redness, no fluctuance. Nontender. EXTREMITIES: Left lower extremity edema present. No cyanosis, no clubbing. DERMATOLOGIC: Warm and dry. No generalized rash. BACK: Reveals normal curvature. No CVA tenderness. NEUROLOGIC: Alert and oriented x 3, grossly nonfocal. PSYCHIATRIC: Cooperative, appropriate mood and affect. Medications: Inpatient Meds: Current Medications Medications (Trade) Dose Ordered Sig/Geetha Start Time Stop Time Status Last Admin Dose Admin Acetaminophen (Tylenol) 650 mg PRN Q4HRS PRN 03/20/19 22:15 03/21/19 08:00 DC Albuterol Sulfate (Ventolin Neb Soln) 10 mg 1X ONCE 03/20/19 22:15 03/20/19 22:16 DC 03/20/19 23:40 10 MG Amlodipine Besylate (Norvasc) 20 mg DAILY 03/21/19 09:00 03/22/19 09:25 20 MG Aspirin (Children'S Aspirin) 81 mg DAILYWBKFT 03/21/19 08:00 03/22/19 09:21 81 MG Atorvastatin Calcium (Lipitor) 10 mg HS 03/21/19 21:00 03/21/19 23:08 10 MG Chlorthalidone (Thalitone) 25 mg DAILY 03/21/19 09:00 03/22/19 09:21 25 MG Insulin Glargine (Lantus Syringe) 30 unit BID 03/21/19 21:00 03/22/19 09:32 30 UNIT Insulin Human Lispro (HumaLOG) 6 units QIDACHS 03/21/19 07:30 03/22/19 09:31 6 UNITS Lisinopril (Prinivil) 40 mg 1X ONCE 03/21/19 00:00 03/21/19 00:01 DC 03/21/19 00:00 40 MG Multivitamins (Thera M Plus) 1 tab DAILY 03/21/19 09:00 03/22/19 09:24 1 TAB Mycophenolate Sodium (Myfortic) 720 mg 1X ONCE 03/21/19 00:00 03/21/19 00:01 DC 03/21/19 00:01 720 MG Non-Formulary Medication (Insulin Glargine,Hum.rec.anlog (Lantus Solostar)) 60 unit DAILY 03/21/19 09:00 UNV Ondansetron HCl (Zofran) 4 mg PRN Q4HRS PRN 03/20/19 22:15 Piperacillin Sod/ Tazobactam Sod (Zosyn Per Pharmacy) 1 each PRN DAILY PRN 03/21/19 07:00 Piperacillin Sod/ Tazobactam Sod 2.25 gm/Sodium Chloride 50 ml @ 100 mls/hr Q6HRS 03/21/19 12:00 03/22/19 06:00 100 MLS/HR Prednisone (Prednisone) 5 mg DAILY 03/21/19 09:00 03/22/19 09:25 5 MG Sodium Chloride 1,000 ml @ 125 mls/hr Q8H 03/20/19 22:15 03/21/19 22:14 DC 03/21/19 14:51 125 MLS/HR Tacrolimus (Prograf) 2 mg 1X ONCE 03/21/19 00:00 03/21/19 00:01 DC 03/21/19 00:02 2 MG Tamsulosin HCl (Flomax) 0.4 mg DAILY 03/21/19 09:00 03/22/19 09:21 0.4 MG Vitamin D (Vitamin D3) 2,000 unit DAILY 03/21/19 09:00 03/22/19 09:24 2,000 UNIT Labs: Lab Laboratory Tests Test 03/21/19 12:18 03/21/19 16:57 03/21/19 21:30 03/22/19 07:45 Glucose (Fingerstick) 243 mg/dL (70-99) 210 mg/dL (70-99) 191 mg/dL (70-99) 140 mg/dL (70-99) Objective: Assessment: 1. Sepsis, source likely genitourinary. 2. Fever. 3. Leukocytosis. 4. History of kidney transplant, on immunosuppression. 5. Nausea, vomiting and diarrhea, improving. 6. Immunosuppression with tacrolimus ,prograff and prednisone. 7. Mycophenolate. 8. Diabetes. Plan: Plan of Care continue zosyn f/u bc and uc pt refused for u/s of abdomen as he had one done recently at [place],will get us a copy for review eager for dc hopefully tomorrow d/w and LYNDSAY Santos MD Mar 22, 2019 09:47
[2019-03-22 10:42] VITALS: BP 145/67
[2019-03-22 10:52] LABS: CALCIUM 8.2 mg/dL (8.5-10.1); CREATININE 2.2 mg/dL (0.7-1.3); GFR 30.2
--- NOTE | 2019-03-22 12:36 | NUR ---
SS following for discharge planning. SS reviewed pt chart. Pt is from home with spouse and is currently on room air. Pt is from [place]. SS will continue to follow for discharge planning.
--- NOTE | 2019-03-22 13:27 | PDOC ---
SUBJECTIVE ROS Denies any complaints, OBJECTIVE Vital Signs Vital Signs Date Time Temp Pulse Resp B/P (MAP) Pulse Ox O2 Delivery O2 Flow Rate FiO2 03/22/19 10:42 98.3 64 16 145/67 (93) 98 Room Air 98.3 I & 0 Intake and Output 03/22/19 07:00 Intake Total 390 ml Output Total 2200 ml Balance -1810 ml Intake Oral 340 ml IV Total 50 ml Output Urine Total 2200 ml PHYSICAL EXAM Physical Exam GENERAL: NAD HEENT: Oral mucosa moist. NECK: Supple, LUNGS: Clear bilaterally. Non labored HEART: S1, S2. No gallops or murmurs. ABDOMEN: Soft, nontender,no transplant tenderness or bruit EXTREMITIES: NO LE edema Skin : Warm and dry. No generalized rash. No CVA or SP tenderness, No zayas NEUROLOGIC: Alert and oriented x 3, grossly nonfocal. PSYCHIATRIC: Cooperative, appropriate mood and affect. DIAGNOSIS/ASSESSMENT Assessment & Plan CKD stage 3/4- per hx obtained from pt baseline cr 2.5 Renal function stable E-Lytes stable Supportive care, avoid nephrotoxins, Monitor Renal Tx- s/p donor Tx in 2012 Follow up at [place] Continue immunosuppressants- Myfortic, Tacrolimus and Prednisone Sepsis/UTI - On Abx Fever/ Leukocytosis. Pt refused US Nausea, vomiting and diarrhea, resolved Diabetes HTN- On antihypertensives including Chlorthalidone per home list COMMENT/RELEVANT DATA Meds Current Medications Medications (Trade) Dose Ordered Sig/Geetha Start Time Stop Time Status Last Admin Dose Admin Acetaminophen (Tylenol) 650 mg PRN Q4HRS PRN 03/20/19 22:15 03/21/19 08:00 DC Albuterol Sulfate (Ventolin Neb Soln) 10 mg 1X ONCE 03/20/19 22:15 03/20/19 22:16 DC 03/20/19 23:40 10 MG Amlodipine Besylate (Norvasc) 20 mg DAILY 03/21/19 09:00 03/22/19 09:25 20 MG Aspirin (Children'S Aspirin) 81 mg DAILYWBKFT 03/21/19 08:00 03/22/19 09:21 81 MG Atorvastatin Calcium (Lipitor) 10 mg HS 03/21/19 21:00 03/21/19 23:08 10 MG Chlorthalidone (Thalitone) 25 mg DAILY 03/21/19 09:00 03/22/19 09:21 25 MG Insulin Glargine (Lantus Syringe) 30 unit BID 03/21/19 21:00 03/22/19 09:32 30 UNIT Insulin Human Lispro (HumaLOG) 6 units QIDACHS 03/21/19 07:30 03/22/19 12:54 6 UNITS Lisinopril (Prinivil) 40 mg 1X ONCE 03/21/19 00:00 03/21/19 00:01 DC 03/21/19 00:00 40 MG Multivitamins (Thera M Plus) 1 tab DAILY 03/21/19 09:00 03/22/19 09:24 1 TAB Mycophenolate Sodium (Myfortic) 720 mg 1X ONCE 03/21/19 00:00 03/21/19 00:01 DC 03/21/19 00:01 720 MG Non-Formulary Medication (Insulin Glargine,Hum.rec.anlog (Lantus Solostar)) 60 unit DAILY 03/21/19 09:00 UNV Ondansetron HCl (Zofran) 4 mg PRN Q4HRS PRN 03/20/19 22:15 Piperacillin Sod/ Tazobactam Sod (Zosyn Per Pharmacy) 1 each PRN DAILY PRN 03/21/19 07:00 Piperacillin Sod/ Tazobactam Sod 2.25 gm/Sodium Chloride 50 ml @ 100 mls/hr Q6HRS 03/21/19 12:00 03/22/19 12:38 100 MLS/HR Prednisone (Prednisone) 5 mg DAILY 03/21/19 09:00 03/22/19 09:25 5 MG Sodium Chloride 1,000 ml @ 125 mls/hr Q8H 03/20/19 22:15 03/21/19 22:14 DC 03/21/19 14:51 125 MLS/HR Tacrolimus (Prograf) 2 mg 1X ONCE 03/21/19 00:00 03/21/19 00:01 DC 03/21/19 00:02 2 MG Tamsulosin HCl (Flomax) 0.4 mg DAILY 03/21/19 09:00 03/22/19 09:21 0.4 MG Vitamin D (Vitamin D3) 2,000 unit DAILY 03/21/19 09:00 03/22/19 09:24 2,000 UNIT Lab Laboratory Tests Test 03/21/19 16:57 03/21/19 21:30 03/22/19 07:45 03/22/19 10:12 Glucose (Fingerstick) 210 mg/dL (70-99) 191 mg/dL (70-99) 140 mg/dL (70-99) Sodium Level 144 mmol/L (136-145) Potassium Level 5.0 mmol/L (3.5-5.1) Chloride Level 110 mmol/L (98-107) Carbon Dioxide Level 21 mmol/L (21-32) Anion Gap 13 (6-14) Blood Urea Nitrogen 33 mg/dL (8-26) Creatinine 2.2 mg/dL (0.7-1.3) Estimated GFR (Cockcroft-Gault) 30.2 Glucose Level 255 mg/dL (70-99) Calcium Level 8.2 mg/dL (8.5-10.1) Test 03/22/19 11:46 Glucose (Fingerstick) 195 mg/dL (70-99) Results All relevant outside records, renal labs, imaging studies, telemetry/EKG's were reviewed. BISMARK GONGORA MD Mar 22, 2019 13:27
--- NOTE | 2019-03-22 16:28 | PDOC ---
PROGRESS NOTES Chief Complaint Chief Complaint sepsis UTI immunosuppressed obese, BMI 31 s/p renal transplant hyperkalemia acute renal failure History of Present Illness History of Present Illness feeling better home to go home soon Vitals Vitals Vital Signs Date Time Temp Pulse Resp B/P (MAP) Pulse Ox O2 Delivery O2 Flow Rate FiO2 03/22/19 10:42 98.3 64 16 145/67 (93) 98 Room Air 98.3 Physical Exam Physical Exam GENERAL: Alert and oriented x 3 male in no acute distress, lying comfortably in bed, pleasant, cooperative. HEENT: Normocephalic, atraumatic, anicteric. No thrush. Oral mucosa moist. NECK: Supple, no JVD, no thyromegaly. LUNGS: Clear bilaterally. No wheezing. HEART: S1, S2. No gallops or murmurs. ABDOMEN: Soft, nontender, nondistended, no rebound, no guarding. Previous renal transplant site looks okay. There is a small area of swelling and induration over the left lower quadrant just below the umbilicus. No overlying redness, no fluctuance. Nontender. EXTREMITIES: Left lower extremity edema present. No cyanosis, no clubbing. DERMATOLOGIC: Warm and dry. No generalized rash. BACK: Reveals normal curvature. No CVA tenderness. NEUROLOGIC: Alert and oriented x 3, grossly nonfocal. PSYCHIATRIC: Cooperative, appropriate mood and affect. General: Alert, Oriented X3, Cooperative, mild distress Abdomen: Normal bowel sounds, Soft Extremities: No clubbing, No edema Skin: No rashes, No significant lesion Labs LABS Laboratory Tests Test 03/21/19 16:57 03/21/19 21:30 03/22/19 07:45 03/22/19 10:12 Glucose (Fingerstick) 210 mg/dL (70-99) 191 mg/dL (70-99) 140 mg/dL (70-99) Sodium Level 144 mmol/L (136-145) Potassium Level 5.0 mmol/L (3.5-5.1) Chloride Level 110 mmol/L (98-107) Carbon Dioxide Level 21 mmol/L (21-32) Anion Gap 13 (6-14) Blood Urea Nitrogen 33 mg/dL (8-26) Creatinine 2.2 mg/dL (0.7-1.3) Estimated GFR (Cockcroft-Gault) 30.2 Glucose Level 255 mg/dL (70-99) Calcium Level 8.2 mg/dL (8.5-10.1) Test 03/22/19 11:46 Glucose (Fingerstick) 195 mg/dL (70-99) Assessment and Plan Assessmemt and Plan Problems Medical Problems: (1) Acute gastroenteritis Status: Acute (2) Chills Status: Acute (3) Chronic renal insufficiency Status: Acute (4) Fever Status: Acute Comment Review of Relevant I have reviewed the following items kojo (where applicable) has been applied. Labs Laboratory Tests Test 03/20/19 21:00 03/20/19 21:10 03/20/19 22:47 03/21/19 07:10 White Blood Count 13.0 x10^3/uL (4.0-11.0) Red Blood Count 4.58 x10^6/uL (4.30-5.70) Hemoglobin 13.3 g/dL (13.0-17.5) Hematocrit 40.0 % (39.0-53.0) Mean Corpuscular Volume 87 fL (79-100) Mean Corpuscular Hemoglobin 29 pg (25-35) Mean Corpuscular Hemoglobin Concent 33 g/dL (31-37) Red Cell Distribution Width 14.6 % (11.5-14.5) Platelet Count 140 x10^3/uL (140-400) Neutrophils (%) (Auto) 86 % (31-73) Lymphocytes (%) (Auto) 7 % (24-48) Monocytes (%) (Auto) 7 % (0-9) Eosinophils (%) (Auto) 0 % (0-3) Basophils (%) (Auto) 0 % (0-3) Neutrophils # (Auto) 11.1 x10^3/uL (1.8-7.7) Lymphocytes # (Auto) 0.9 x10^3/uL (1.0-4.8) Monocytes # (Auto) 0.9 x10^3/uL (0.0-1.1) Eosinophils # (Auto) 0.0 x10^3/uL (0.0-0.7) Basophils # (Auto) 0.0 x10^3/uL (0.0-0.2) Segmented Neutrophils % 83 % (35-66) Band Neutrophils % 4 % (0-9) Lymphocytes % 6 % (24-48) Monocytes % 6 % (0-10) Metamyelocytes % 1 % (0-0) Toxic Vacuolation Slight Platelet Estimate Adequate (ADEQUATE) Prothrombin Time 13.5 SEC (11.7-14.0) Prothromb Time International Ratio 1.1 (0.8-1.1) Sodium Level 138 mmol/L (136-145) Potassium Level 5.4 mmol/L (3.5-5.1) Chloride Level 105 mmol/L (98-107) Carbon Dioxide Level 22 mmol/L (21-32) Anion Gap 11 (6-14) Blood Urea Nitrogen 51 mg/dL (8-26) Creatinine 2.5 mg/dL (0.7-1.3) Estimated GFR (Cockcroft-Gault) 26.0 BUN/Creatinine Ratio 20 (6-20) Glucose Level 174 mg/dL (70-99) Lactic Acid Level 0.8 mmol/L (0.4-2.0) Calcium Level 8.8 mg/dL (8.5-10.1) Total Bilirubin 0.6 mg/dL (0.2-1.0) Aspartate Amino Transf (AST/SGOT) 30 U/L (15-37) Alanine Aminotransferase (ALT/SGPT) 44 U/L (16-63) Alkaline Phosphatase 79 U/L (46-116) Total Protein 7.7 g/dL (6.4-8.2) Albumin 4.0 g/dL (3.4-5.0) Albumin/Globulin Ratio 1.1 (1.0-1.7) Lipase 211 U/L (73-393) Influenza Type A Antigen Negative (NEGATIVE) Influenza Type B Antigen Negative (NEGATIVE) Glucose (Fingerstick) 136 mg/dL (70-99) Urine Collection Type U cath Urine Color Yellow Urine Clarity Clear Urine pH 5.5 Urine Specific [place] 1.015 Urine Protein Negative mg/dL (NEG-TRACE) Urine Glucose (UA) Negative mg/dL (NEG) Urine Ketones (Stick) Negative mg/dL (NEG) Urine Blood Negative (NEG) Urine Nitrite Positive (NEG) Urine Bilirubin Negative (NEG) Urine Urobilinogen Dipstick 0.2 mg/dL (0.2 mg/dL) Urine Leukocyte Esterase Moderate (NEG) Urine RBC Occ /HPF (0-2) Urine WBC >40 /HPF (0-4) Urine Squamous Epithelial Cells Occ /LPF Urine Bacteria Many /HPF (0-FEW) Urine Mucus Slight /LPF Test 03/21/19 08:17 03/21/19 12:18 03/21/19 16:57 03/21/19 21:30 Glucose (Fingerstick) 208 mg/dL (70-99) 243 mg/dL (70-99) 210 mg/dL (70-99) 191 mg/dL (70-99) Test 03/22/19 07:45 03/22/19 10:12 03/22/19 11:46 Glucose (Fingerstick) 140 mg/dL (70-99) 195 mg/dL (70-99) Sodium Level 144 mmol/L (136-145) Potassium Level 5.0 mmol/L (3.5-5.1) Chloride Level 110 mmol/L (98-107) Carbon Dioxide Level 21 mmol/L (21-32) Anion Gap 13 (6-14) Blood Urea Nitrogen 33 mg/dL (8-26) Creatinine 2.2 mg/dL (0.7-1.3) Estimated GFR (Cockcroft-Gault) 30.2 Glucose Level 255 mg/dL (70-99) Calcium Level 8.2 mg/dL (8.5-10.1) Laboratory Tests Test 03/21/19 16:57 03/21/19 21:30 03/22/19 07:45 03/22/19 10:12 Glucose (Fingerstick) 210 mg/dL (70-99) 191 mg/dL (70-99) 140 mg/dL (70-99) Sodium Level 144 mmol/L (136-145) Potassium Level 5.0 mmol/L (3.5-5.1) Chloride Level 110 mmol/L (98-107) Carbon Dioxide Level 21 mmol/L (21-32) Anion Gap 13 (6-14) Blood Urea Nitrogen 33 mg/dL (8-26) Creatinine 2.2 mg/dL (0.7-1.3) Estimated GFR (Cockcroft-Gault) 30.2 Glucose Level 255 mg/dL (70-99) Calcium Level 8.2 mg/dL (8.5-10.1) Test 03/22/19 11:46 Glucose (Fingerstick) 195 mg/dL (70-99) Microbiology 03/21/19 Blood Culture - Preliminary, Resulted NO GROWTH AFTER 1 DAY Medications Current Medications Acetaminophen (Tylenol) 1,000 mg 1X ONCE PO Last administered on 03/20/19at 21:10; Start 03/20/19 at 20:30; Stop 03/20/19 at 20:33; Status DC Ondansetron HCl (Zofran) 4 mg 1X ONCE IV ; Start 03/20/19 at 20:30; Stop 03/20/19 at 20:33; Status DC Sodium Chloride 1,000 ml @ 1,000 mls/hr 1X ONCE IV Last administered on 03/20/19at 21:09; Start 03/20/19 at 20:30; Stop 03/20/19 at 21:29; Status DC Sodium Chloride 1,000 ml @ 1,000 mls/hr 1X ONCE IV Last administered on 03/20/19at 21:15; Start 03/20/19 at 20:30; Stop 03/20/19 at 21:29; Status DC Sodium Chloride 1,000 ml @ 1,000 mls/hr 1X ONCE IV Last administered on 03/20/19at 21:14; Start 03/20/19 at 20:45; Stop 03/20/19 at 21:44; Status DC Piperacillin Sod/ Tazobactam Sod 2.25 gm/Sodium Chloride 50 ml @ 100 mls/hr 1X ONCE IV Last administered on 03/20/19at 22:02; Start 03/20/19 at 21:45; Stop 03/20/19 at 22:14; Status DC Albuterol Sulfate (Ventolin Neb Soln) 10 mg 1X ONCE CONT NEB Last administered on 03/20/19at 23:40; Start 03/20/19 at 22:15; Stop 03/20/19 at 22:16; Status DC Ondansetron HCl (Zofran) 4 mg PRN Q4HRS PRN IV NAUSEA/VOMITING; Start 03/20/19 at 22:15 Sodium Chloride 1,000 ml @ 125 mls/hr Q8H IV Last administered on 03/21/19at 14:51; Start 03/20/19 at 22:15; Stop 03/21/19 at 22:14; Status DC Acetaminophen (Tylenol) 650 mg PRN Q4HRS PRN PO FEVER; Start 03/20/19 at 22:15; Stop 03/21/19 at 08:00; Status DC Piperacillin Sod/ Tazobactam Sod 2.25 gm/Sodium Chloride 50 ml @ 100 mls/hr Q6HRS IV Last administered on 03/21/19 06:09; Start 03/21/19 at 00:00; Stop 03/21/19 at 06:29; Status DC Amlodipine Besylate (Norvasc) 20 mg DAILY PO Last administered on 03/22/19 09:25; Start 03/21/19 at 09:00 Aspirin (Children'S Aspirin) 81 mg DAILYWBKFT PO Last administered on 03/22/19 09:21; Start 03/21/19 at 08:00 Atorvastatin Calcium (Lipitor) 10 mg HS PO Last administered on 03/21/19 23:08; Start 03/21/19 at 21:00 Chlorthalidone (Thalitone) 25 mg DAILY PO Last administered on 03/22/19 09:21; Start 03/21/19 at 09:00 Insulin Human Lispro (HumaLOG) 6 units QIDACHS SQ Last administered on 03/22/19at 12:54; Start 03/21/19 at 07:30 Lisinopril (Prinivil) 40 mg BID PO Last administered on 03/22/19 09:24; Start 03/21/19 at 09:00 Tacrolimus (Prograf) 2 mg BID PO Last administered on 03/22/19 09:21; Start 03/21/19 at 09:00 Tamsulosin HCl (Flomax) 0.4 mg DAILY PO Last administered on 03/22/19 09:21; Start 03/21/19 at 09:00 Vitamin D (Vitamin D3) 2,000 unit DAILY PO Last administered on 03/22/19 09:24; Start 03/21/19 at 09:00 Non-Formulary Medication (Insulin Glargine,Hum.rec.anlog (Lantus Solostar)) 60 unit DAILY SQ ; Start 03/21/19 at 09:00; Status UNV Multivitamins (Thera M Plus) 1 tab DAILY PO Last administered on 03/22/19 09:24; Start 03/21/19 at 09:00 Mycophenolate Sodium (Myfortic) 720 mg BID PO Last administered on 03/22/19at 09:21; Start 03/21/19 at 09:00 Prednisone (Prednisone) 5 mg DAILY PO Last administered on 03/22/19at 09:25; Start 03/21/19 at 09:00 Insulin Glargine (Lantus Syringe) 60 unit DAILY SQ Last administered on 03/21/19at 09:10; Start 03/21/19 at 09:00; Stop 03/21/19 at 12:49; Status DC Mycophenolate Sodium (Myfortic) 720 mg 1X ONCE PO Last administered on 03/21/19at 00:01; Start 03/21/19 at 00:00; Stop 03/21/19 at 00:01; Status DC Tacrolimus (Prograf) 2 mg 1X ONCE PO ; Start 03/21/19 at 00:00; Stop 03/20/19 at 23:54; Status DC Lisinopril (Prinivil) 40 mg 1X ONCE PO Last administered on 03/21/19at 00:00; Start 03/21/19 at 00:00; Stop 03/21/19 at 00:01; Status DC Tacrolimus (Prograf) 2 mg 1X ONCE PO Last administered on 03/21/19at 00:02; Start 03/21/19 at 00:00; Stop 03/21/19 at 00:01; Status DC Piperacillin Sod/ Tazobactam Sod (Zosyn Per Pharmacy) 1 each PRN DAILY PRN MC SEE COMMENTS; Start 03/21/19 at 07:00 Piperacillin Sod/ Tazobactam Sod 2.25 gm/Sodium Chloride 50 ml @ 100 mls/hr Q6HRS IV Last administered on 03/22/19at 12:38; Start 03/21/19 at 12:00 Insulin Glargine (Lantus Syringe) 30 unit BID SQ Last administered on 03/22/19at 09:32; Start 03/21/19 at 21:00 Active Scripts Active Reported Lantus Solostar (Insulin Glargine,Hum.rec.anlog) 100 Unit/1 Ml Insuln.pen 30 Unit SQ BID Humalog (Insulin Lispro) 100 Unit/1 Ml Vial 6 Unit SQ QIDACHS Vitamin D (Cholecalciferol (Vitamin D3)) 2,000 Unit Capsule 1 Cap PO DAILY Aspirin 81 Mg Tab.chew 1 Tab PO DAILY Multivitamins (Multivitamin) 1 Each Tablet 1 Tab PO DAILY Chlorthalidone (Chlorthalidone) 25 Mg Tablet 25 Mg PO DAILY Atorvastatin Calcium 10 Mg Tablet 1 Tab PO DAILY Norvasc (Amlodipine Besylate) 10 Mg Tablet 20 Mg PO DAILY Flomax (Tamsulosin Hcl) 0.4 Mg Cap.er.24h 0.4 Mg PO DAILY Lisinopril 40 Mg Tablet 40 Mg PO BID Prednisone 2.5 Mg Tablet 5 Mg PO DAILY Prograf (Tacrolimus) 1 Mg Capsule 2 Mg PO BID Myfortic (Mycophenolate Sodium) 360 Mg Tablet.dr 720 Mg PO BID Vitals/I & O Vital Sign - Last 24 Hours 03/21/19 03/21/19 03/21/19 03/21/19 19:34 20:00 22:52 23:06 Temp 98.5 98.2 98.5 98.2 Pulse 75 66 75 Resp 16 16 B/P (MAP) 147/68 (94) 129/49 (75) 147/68 Pulse Ox 99 94 O2 Delivery Room Air Room Air Room Air 03/22/19 03/22/19 03/22/19 03/22/19 04:18 07:42 08:00 09:24 Temp 98.3 98.4 98.3 98.4 Pulse 65 65 65 Resp 16 16 B/P (MAP) 148/65 (92) 158/74 (102) 158/74 Pulse Ox 97 96 O2 Delivery Room Air Room Air Room Air 03/22/19 03/22/19 09:25 10:42 Temp 98.3 98.3 Pulse 65 64 Resp 16 B/P (MAP) 158/74 145/67 (93) Pulse Ox 98 O2 Delivery Room Air Intake and Output 03/21/19 03/21/19 03/22/19 15:00 23:00 07:00 Intake Total 240 ml 150 ml Output Total 1000 ml 1200 ml Balance 240 ml -1000 ml -1050 ml FLORESITA LUO MD Mar 22, 2019 16:28
[2019-03-22 19:13] VITALS: BP 181/64
--- NOTE | 2019-03-22 20:05 | NUR ---
Pt in bed assessment completed vss poc explained pt denied pain will resume care and continue to monitor pt. Pt at bedside call light placed in reach.
[2019-03-22] MEDS: ATORVASTATIN CALCIUM 10 MG TABLET. PO SCH (21:02)
[2019-03-22 22:41] VITALS: BP 141/69
[2019-03-23 02:53] VITALS: BP 140/58
[2019-03-23] MEDS: PIPERACILLIN/TAZOBACTAM 2.25 GM in IV NORMAL SALINE 50ML 50 ML IV SCH ×2 (06:09→09:41)
[2019-03-23 06:37] LABS: CALCIUM 8.4 mg/dL (8.5-10.1); CREATININE 2.1 mg/dL (0.7-1.3); GFR 31.9; POTASSIUM 4.7 mmol/L (3.5-5.1)
[2019-03-23 07:04] VITALS: BP 180/68
--- NOTE | 2019-03-23 07:59 | PDOC ---
Infectious Disease Note Subjective: Subjective pt without complaints wants to go home today is back to normal ROS: ROS Negative otherwise. Vital Signs: Vital Signs Vital Signs Date Time Temp Pulse Resp B/P (MAP) Pulse Ox O2 Delivery O2 Flow Rate FiO2 03/23/19 07:04 98.4 60 18 180/68 (105) 98 Room Air 98.4 Physical Exam: PHYSICAL EXAM GENERAL: Alert and oriented x 3 male in no acute distress, lying comfortably in bed, pleasant, cooperative. HEENT: Normocephalic, atraumatic, anicteric. No thrush. Oral mucosa moist. NECK: Supple, no JVD, no thyromegaly. LUNGS: Clear bilaterally. No wheezing. HEART: S1, S2. No gallops or murmurs. ABDOMEN: Soft, nontender, nondistended, no rebound, no guarding. Previous renal transplant site looks okay. There is a small area of swelling and induration over the left lower quadrant just below the umbilicus. No overlying redness, no fluctuance. Nontender. EXTREMITIES: Left lower extremity edema present. No cyanosis, no clubbing. DERMATOLOGIC: Warm and dry. No generalized rash. BACK: Reveals normal curvature. No CVA tenderness. NEUROLOGIC: Alert and oriented x 3, grossly nonfocal. PSYCHIATRIC: Cooperative, appropriate mood and affect. Medications: Inpatient Meds: Current Medications Medications (Trade) Dose Ordered Sig/Geetha Start Time Stop Time Status Last Admin Dose Admin Acetaminophen (Tylenol) 650 mg PRN Q4HRS PRN 03/20/19 22:15 03/21/19 08:00 DC Albuterol Sulfate (Ventolin Neb Soln) 10 mg 1X ONCE 03/20/19 22:15 03/20/19 22:16 DC 03/20/19 23:40 10 MG Amlodipine Besylate (Norvasc) 20 mg DAILY 03/21/19 09:00 03/22/19 09:25 20 MG Aspirin (Children'S Aspirin) 81 mg DAILYWBKFT 03/21/19 08:00 03/22/19 09:21 81 MG Atorvastatin Calcium (Lipitor) 10 mg HS 03/21/19 21:00 03/22/19 21:02 10 MG Chlorthalidone (Thalitone) 25 mg DAILY 03/21/19 09:00 03/22/19 09:21 25 MG Insulin Glargine (Lantus Syringe) 30 unit BID 03/21/19 21:00 03/22/19 21:04 30 UNIT Insulin Human Lispro (HumaLOG) 6 units QIDACHS 03/21/19 07:30 03/22/19 21:03 4 UNITS Lisinopril (Prinivil) 40 mg 1X ONCE 03/21/19 00:00 03/21/19 00:01 DC 03/21/19 00:00 40 MG Multivitamins (Thera M Plus) 1 tab DAILY 03/21/19 09:00 03/22/19 09:24 1 TAB Mycophenolate Sodium (Myfortic) 720 mg 1X ONCE 03/21/19 00:00 03/21/19 00:01 DC 03/21/19 00:01 720 MG Non-Formulary Medication (Insulin Glargine,Hum.rec.anlog (Lantus Solostar)) 60 unit DAILY 03/21/19 09:00 UNV Ondansetron HCl (Zofran) 4 mg PRN Q4HRS PRN 03/20/19 22:15 Piperacillin Sod/ Tazobactam Sod (Zosyn Per Pharmacy) 1 each PRN DAILY PRN 03/21/19 07:00 Piperacillin Sod/ Tazobactam Sod 2.25 gm/Sodium Chloride 50 ml @ 100 mls/hr Q6HRS 03/21/19 12:00 03/23/19 06:09 100 MLS/HR Prednisone (Prednisone) 5 mg DAILY 03/21/19 09:00 03/22/19 09:25 5 MG Sodium Chloride 1,000 ml @ 125 mls/hr Q8H 03/20/19 22:15 03/21/19 22:14 DC 03/21/19 14:51 125 MLS/HR Tacrolimus (Prograf) 2 mg 1X ONCE 03/21/19 00:00 03/21/19 00:01 DC 03/21/19 00:02 2 MG Tamsulosin HCl (Flomax) 0.4 mg DAILY 03/21/19 09:00 03/22/19 09:21 0.4 MG Vitamin D (Vitamin D3) 2,000 unit DAILY 03/21/19 09:00 03/22/19 09:24 2,000 UNIT Labs: Lab Laboratory Tests Test 03/22/19 10:12 03/22/19 11:46 03/22/19 16:40 03/22/19 20:37 Sodium Level 144 mmol/L (136-145) Potassium Level 5.0 mmol/L (3.5-5.1) Chloride Level 110 mmol/L (98-107) Carbon Dioxide Level 21 mmol/L (21-32) Anion Gap 13 (6-14) Blood Urea Nitrogen 33 mg/dL (8-26) Creatinine 2.2 mg/dL (0.7-1.3) Estimated GFR (Cockcroft-Gault) 30.2 Glucose Level 255 mg/dL (70-99) Calcium Level 8.2 mg/dL (8.5-10.1) Glucose (Fingerstick) 195 mg/dL (70-99) 245 mg/dL (70-99) 246 mg/dL (70-99) Test 03/23/19 05:40 03/23/19 07:07 Sodium Level 145 mmol/L (136-145) Potassium Level 4.7 mmol/L (3.5-5.1) Chloride Level 112 mmol/L (98-107) Carbon Dioxide Level 22 mmol/L (21-32) Anion Gap 11 (6-14) Blood Urea Nitrogen 28 mg/dL (8-26) Creatinine 2.1 mg/dL (0.7-1.3) Estimated GFR (Cockcroft-Gault) 31.9 Glucose Level 109 mg/dL (70-99) Calcium Level 8.4 mg/dL (8.5-10.1) Glucose (Fingerstick) 75 mg/dL (70-99) Micro BC neg UC neg U/S done at [place] seen result on pts phone, no acute changes Objective: Assessment: 1. Sepsis, source likely genitourinary.BC ,UC neg per micro as of this time Pt wants to be dc home today in [place] 2. Fever.resolved 3. Leukocytosis.improved 4. History of kidney transplant, on immunosuppression. 5. Nausea, vomiting and diarrhea, improving. 6. Immunosuppression with tacrolimus ,prograff and prednisone. 7. Mycophenolate. 8. Diabetes. Plan: Plan of Care ok to dc on empiric augmentin pending bc and uc,script in chart micro says neg so far d/w pt he will call tomorrow for micro results to the RN pt to f/u with primary care in one week d/w and rn LYNDSAY HOWE MD Mar 23, 2019 07:59
[2019-03-23] MEDS: CHLORTHALIDONE 25 MG TABLET. PO SCH (08:16)
[2019-03-23] MEDS: TACROLIMUS 0.5 MG CAPSULE PO SCH (08:17)
[2019-03-23] MEDS: ASPIRIN CHEWABLE 81 MG TABLET. PO SCH (08:18)
[2019-03-23] MEDS: MULTIVITAMIN with MINERAL TABLET. PO SCH (08:18)
[2019-03-23] MEDS: LISINOPRIL 20 MG TABLET PO SCH (08:18)
[2019-03-23] MEDS: MYCOPHENOLATE ACID 180 MG TABLET.DR. PO SCH (08:19)
[2019-03-23] MEDS: predniSONE 5 MG TABLET PO SCH (08:19)
[2019-03-23] MEDS: CHOLECALCIFEROL (VITAMIN D3) 1,000 UNIT TABLET PO SCH (08:20)
[2019-03-23] MEDS: TAMSULOSIN 0.4 MG CAP.ER.24H. PO SCH (08:20)
[2019-03-23] MEDS: INSULIN GLARGINE SYRINGE. SQ SCH (08:31)
[2019-03-23] MEDS: INSULIN LISPRO 300 UNITS/3 ML VIAL. SQ SCH (08:31)
[2019-03-23] MEDS ORDERED: AMOX1TAB61 PO (09:03)
--- NOTE | 2019-03-23 10:07 | PDOC ---
SUBJECTIVE ROS Denies any complaints, OBJECTIVE Vital Signs Vital Signs Date Time Temp Pulse Resp B/P (MAP) Pulse Ox O2 Delivery O2 Flow Rate FiO2 03/23/19 08:18 60 180/68 03/23/19 07:04 98.4 18 98 Room Air 98.4 I & 0 Intake and Output 03/23/19 06:59 Intake Total 1520 ml Output Total 2200 ml Balance -680 ml Intake Oral 1520 ml Output Urine Total 2200 ml PHYSICAL EXAM Physical Exam GENERAL: NAD HEENT: Oral mucosa moist. NECK: Supple, LUNGS: Clear bilaterally. Non labored HEART: S1, S2. No gallops or murmurs. ABDOMEN: Soft, nontender,no transplant tenderness or bruit EXTREMITIES: NO LE edema Skin : Warm and dry. No generalized rash. No CVA or SP tenderness, No zayas NEUROLOGIC: Alert and oriented x 3, grossly nonfocal. PSYCHIATRIC: Cooperative, appropriate mood and affect. DIAGNOSIS/ASSESSMENT Assessment & Plan Dg - Per Pt Cr was 2.5 at baseline C avoid nephrotoxins,urrently improved to 2.1 , E-Lytes stable avoid nephrotoxins, CKD stage 3/4- per hx obtained from pt baseline cr 2.5 fFollow with primary information security analyst Renal Tx- s/p donor Tx in 2012 Follow up at [place] Continue immunosuppressants- Myfortic, Tacrolimus and Prednisone Sepsis/UTI - On Abx Fever/ Leukocytosis. Pt refused US Nausea, vomiting and diarrhea, resolved Diabetes HTN- On antihypertensives including Chlorthalidone per home list COMMENT/RELEVANT DATA Meds Current Medications Medications (Trade) Dose Ordered Sig/Geetha Start Time Stop Time Status Last Admin Dose Admin Acetaminophen (Tylenol) 650 mg PRN Q4HRS PRN 03/20/19 22:15 03/21/19 08:00 DC Albuterol Sulfate (Ventolin Neb Soln) 10 mg 1X ONCE 03/20/19 22:15 03/20/19 22:16 DC 03/20/19 23:40 10 MG Amlodipine Besylate (Norvasc) 20 mg DAILY 03/21/19 09:00 03/22/19 09:25 20 MG Aspirin (Children'S Aspirin) 81 mg DAILYWBKFT 03/21/19 08:00 03/23/19 08:18 81 MG Atorvastatin Calcium (Lipitor) 10 mg HS 03/21/19 21:00 03/22/19 21:02 10 MG Chlorthalidone (Thalitone) 25 mg DAILY 03/21/19 09:00 03/23/19 08:16 25 MG Insulin Glargine (Lantus Syringe) 30 unit BID 03/21/19 21:00 03/23/19 08:31 30 UNIT Insulin Human Lispro (HumaLOG) 6 units QIDACHS 03/21/19 07:30 03/23/19 08:31 6 UNITS Lisinopril (Prinivil) 40 mg 1X ONCE 03/21/19 00:00 03/21/19 00:01 DC 03/21/19 00:00 40 MG Multivitamins (Thera M Plus) 1 tab DAILY 03/21/19 09:00 03/23/19 08:18 1 TAB Mycophenolate Sodium (Myfortic) 720 mg 1X ONCE 03/21/19 00:00 03/21/19 00:01 DC 03/21/19 00:01 720 MG Non-Formulary Medication (Insulin Glargine,Hum.rec.anlog (Lantus Solostar)) 60 unit DAILY 03/21/19 09:00 UNV Ondansetron HCl (Zofran) 4 mg PRN Q4HRS PRN 03/20/19 22:15 Piperacillin Sod/ Tazobactam Sod (Zosyn Per Pharmacy) 1 each PRN DAILY PRN 03/21/19 07:00 Piperacillin Sod/ Tazobactam Sod 2.25 gm/Sodium Chloride 50 ml @ 100 mls/hr Q6HRS 03/21/19 12:00 03/23/19 09:41 100 MLS/HR Prednisone (Prednisone) 5 mg DAILY 03/21/19 09:00 03/23/19 08:19 5 MG Sodium Chloride 1,000 ml @ 125 mls/hr Q8H 03/20/19 22:15 03/21/19 22:14 DC 03/21/19 14:51 125 MLS/HR Tacrolimus (Prograf) 2 mg 1X ONCE 03/21/19 00:00 03/21/19 00:01 DC 03/21/19 00:02 2 MG Tamsulosin HCl (Flomax) 0.4 mg DAILY 03/21/19 09:00 03/23/19 08:20 0.4 MG Vitamin D (Vitamin D3) 2,000 unit DAILY 03/21/19 09:00 03/23/19 08:20 2,000 UNIT Lab Laboratory Tests Test 03/22/19 10:12 03/22/19 11:46 03/22/19 16:40 03/22/19 20:37 Sodium Level 144 mmol/L (136-145) Potassium Level 5.0 mmol/L (3.5-5.1) Chloride Level 110 mmol/L (98-107) Carbon Dioxide Level 21 mmol/L (21-32) Anion Gap 13 (6-14) Blood Urea Nitrogen 33 mg/dL (8-26) Creatinine 2.2 mg/dL (0.7-1.3) Estimated GFR (Cockcroft-Gault) 30.2 Glucose Level 255 mg/dL (70-99) Calcium Level 8.2 mg/dL (8.5-10.1) Glucose (Fingerstick) 195 mg/dL (70-99) 245 mg/dL (70-99) 246 mg/dL (70-99) Test 03/23/19 05:40 03/23/19 07:07 Sodium Level 145 mmol/L (136-145) Potassium Level 4.7 mmol/L (3.5-5.1) Chloride Level 112 mmol/L (98-107) Carbon Dioxide Level 22 mmol/L (21-32) Anion Gap 11 (6-14) Blood Urea Nitrogen 28 mg/dL (8-26) Creatinine 2.1 mg/dL (0.7-1.3) Estimated GFR (Cockcroft-Gault) 31.9 Glucose Level 109 mg/dL (70-99) Calcium Level 8.4 mg/dL (8.5-10.1) Glucose (Fingerstick) 75 mg/dL (70-99) Results All relevant outside records, renal labs, imaging studies, telemetry/EKG's were reviewed. BISMARK GONGORA MD Mar 23, 2019 10:07
[2019-03-23 10:51] VITALS: BP 187/79
--- NOTE | 2019-03-23 12:35 | NUR ---
DISCHARGED PATIENT TO HOME. DISCHARGE INSTRUCTIONS GIVEN. PIV AND HEART MONITOR REMOVED. ESCORTED PATIENT TO FRONT ENTRANCE INTO A PRIVATE VEHICLE.
== END 2019-03-23 12:35 | disposition home or self-care (01) | DRG 871 ==
LOC: ER 19:54 → 2 NORTH 21:48
PROVIDERS: ADMIT Family Medicine; ATTEND Family Medicine
DX: A41.9 Sepsis, unspecified organism (principal); N17.0 Acute kidney failure with tubular necrosis; N39.0 Urinary tract infection, site not specified; T86.19 Other complication of kidney transplant; I12.9 Hypertensive chronic kidney disease with stage 1 through stage 4 chronic kidney disease, or unspecified chronic kidney disease; N18.3 Chronic kidney disease, stage 3 (moderate); E78.00 Pure hypercholesterolemia, unspecified; E11.22 Type 2 diabetes mellitus with diabetic chronic kidney disease; Y83.0 Surgical operation with transplant of whole organ as the cause of abnormal reaction of the patient, or of later complication, without mention of misadventure at the time of the procedure; K52.9 Noninfective gastroenteritis and colitis, unspecified; E66.9 Obesity, unspecified; E87.5 Hyperkalemia; J20.9 Acute bronchitis, unspecified; E78.5 Hyperlipidemia, unspecified; Z68.31 Body mass index [BMI] 31.0-31.9, adult
CPT/HCPCS: 36415; 71045; 80048; 80053; 81001; 82962; 83605; 83690; 85007; 85025; 85610; 87040; 87086; 87804; 94640; 96361; 96365; J1815; J2543; J7030; J7507; J7512; J7613; 99291-25; G0378